=== PATIENT | female | born 1980 | race Caucasian/White ===

== ENCOUNTER 2019-08-19 14:16 | Outpatient (CLI) | payer OTHER, SELFPAY ==
--- NOTE | 2019-08-19 14:31 | MM_ITS ---
WS: [id number] BILATERAL DIGITAL SCREENING MAMMOGRAPHY WITH CAD CLINICAL INFORMATION: SCREEN HISTORY: Screening mammogram. No current complaints. COMPARISON: None. TECHNIQUE: Bilateral CC and MLO views. FINDINGS: Scattered fibroglandular densities bilaterally. No suspicious focal mass, asymmetry, calcifications, or architectural distortion. No evidence of malignancy. MM/[id number] IMPRESSION: BI-RADS: 2-Benign FOLLOW UP: 1 Year Follow-up Recommend return to annual screening mammography.
== END 2019-08-19 14:17 | disposition home or self-care (01) ==
PROVIDERS: PCP Family Medicine; Visit Provider Nurse Practitioner Family
DX: Z12.31 Encounter for screening mammogram for malignant neoplasm of breast (principal)
CPT/HCPCS: 77067

== ENCOUNTER 2021-02-06 10:50 | Outpatient (CLI) | payer OTHER, SELFPAY ==
--- NOTE | 2021-02-06 11:02 | MM_ITS ---
WS: [id number] BILATERAL SCREENING DIGITAL MAMMOGRAM WITH CAD HISTORY: SCREENING COMPARISON: 08/19/2019 Bilateral CC and MLO views submitted. Computer aided detection analyzed. Breast composition: The breasts are heterogeneously dense, which may obscure small masses. No suspici ous masses, microcalcifications or architectural distortion. Scattered asymmetries within each breast are stable. Benign calcifications in the LEFT breast. MM/[id number] IMPRESSION: BI-RADS: 2-Benign FOLLOW UP: 1 Year Follow-up
== END 2021-02-06 10:51 | disposition home or self-care (01) ==
LOC: RADSHAW 10:58
PROVIDERS: PCP Family Medicine; Visit Provider Nurse Practitioner Family
DX: Z12.31 Encounter for screening mammogram for malignant neoplasm of breast (principal)
CPT/HCPCS: 77067

== ENCOUNTER 2023-06-10 09:44 | Outpatient (CLI) | payer MEDICAID, SELFPAY ==
--- NOTE | 2023-06-10 09:48 | XRR_ITS ---
PROCEDURE INFORMATION: Exam: XR Urography With Contrast Exam date and time: 06/10/2023 9:30 AM Age: 42 years old Clinical indication: Symptoms: Megaloureter/dilation of R ureter; Prior surgery; Surgery date: 6+ months; Surgery type: TECHNIQUE: Imaging protocol: XR urography with intravenous contrast, with or without tomography. COMPARISON: No relevant prior studies available. FINDINGS: Kidneys and ureters: Kidneys are normal in size, shape, and position. Nephrograms are normal. There is no dilatation or filling defects of the renal calyces or renal pelvis. The ureters are normal in course and caliber, without any filling defects. Bladder: Normal. The bladder is normal in size, shape, and contour. No filling defects are evident. There is minimal post-void residual. XR/XR IVP w [id number] IMPRESSION: Unremarkable IV urogram.
== END 2023-06-10 09:45 | disposition home or self-care (01) ==
LOC: RAD 09:44
PROVIDERS: PCP Family Medicine; Visit Provider Obstetrics & Gynecology
DX: N28.82 Megaloureter (principal); Z98.891 History of uterine scar from previous surgery
CPT/HCPCS: 74400

== ENCOUNTER 2023-09-09 16:03 | Observation (INO) | payer MEDICAID, SELFPAY ==
--- NOTE | 2023-09-01 10:43 | ANES.PREANE2 ---
Pre-Anesthetic Assessment Height/Weight: Height 1.7 m Operation Date: 09/09/23 09:20 Proposed Procedures p Total Vaginal Hysterectomy 27491, 95837,79792, N81.2, N93.9, N81.10, N39.46(Not Applicable) - Aidan Jack MD s Anterior Repair Anterior Colporrhaphy(Not Applicable) - Aidan Jack MD s Sling(Not Applicable) - Aidan Jack MD Familial anesthetic complications: none Was Beta Jazz taken within 24 hours: N/A Was Clonidine taken within 24 hours: N/A Last intake: > 8 hrs Social No alcohol and No tobacco Exam alert, oriented x 3, clear to auscultation bilaterally and regular rate & rhythm Airway Mallampati: Class II Dentition: full Anesthetic Plan ASA status: 1 Anesthesia: General Risk of > 500 ml blood loss (7ml/kg in children): No Medications/Allergies Home Medications Medication Instructions Recorded Confirmed Last Taken Type escitalopram oxalate 10 mg tablet 10 mg PO DAILY 05/21/23 09/01/23 09/01/23 History (Lexapro) progesterone micronized 100 mg 100 mg PO .QPM 05/21/23 09/01/23 09/01/23 History capsule omega-3 fatty acids 300 mg capsule 1,500 mg PO DAILY 09/01/23 09/01/23 09/01/23 History Allergies Allergy/AdvReac Type Severity Reaction Status Date / Time No Known Allergies Allergy Verified 09/01/23 10:19 [facility] Anesthesia Family History Denies family history of Colon cancer Ovarian cancer Diabetes Heart disease Breast cancer Hypertension Uterine cancer Thyroid disease Stroke Data Anesthesia Cardiac Studies: No Data to Display
[2023-09-09] VITALS (23 sets, daily range): BP systolic 96–135; BP diastolic 57–82; PULSE 67–104; RESP 8–19; TEMP 36.3–36.7; O2SAT 97–100; BMI 26.6
[2023-09-09 11:43] LABS: OR HCG Qualitative Urine Negative (Negative)
--- NOTE | 2023-09-09 11:46 | P.ANESUD_ITS ---
Pre-Anesthetic Update Pre-Anesthetic Assessment: Date of Surgery/Procedure: 09/09/23 Preop Kassandra gnosis: Uterine prolapse, cystocele, mixed urinary incontinence Proposed Procedure: Operation Date: 09/09/23 12:30 Proposed Procedures p Total Vaginal Hysterectomy 32798, [id number],17495, N81.2, N93.9, N81.10, N39.46(Not Applicable) - Aidan Jack MD s Anterior Repair Anterior Colporrhaphy(Not Applicable) - Aidan Jack MD s Sling(Not Applicable) - Aidan Jack MD Any changes to Pre-Anesthetic Assessment?: No Exam: Pre-Anes Outpt Exam: alert, oriented x 3, clear to auscultation bilaterally and regular rate & rhythm Cardiac Studies: No Data to Display
[2023-09-09] MEDS: sodium chloride 0.9% 500 ML IV (12:28)
[2023-09-09] MEDS: scopolamine 1.5 Patch 1 PATCH TRANSDERMA (12:32)
[2023-09-09] MEDS: midazolam 1 mg/mL INJ 2 mL 2 MG IVP (12:35)
--- NOTE | 2023-09-09 12:42 | W.PM.OPSUD ---
Surgery/Procedure H&P Update DATE OF PROCEDURE: September 09, 2023 DATE H&P PERFORMED: 09/01/23 H&P UPDATE INFORMATION: I have reviewed H&P completed within last 30 days, I have examined patient prior to procedure and No changes to prior documentation PREOP DIAGNOSIS: Uterine prolapse, cystocele, mixed urinary incontinence PLANNED PROCEDURE: Operation Date: 09/09/23 12:30 Proposed Procedures p Total Vaginal Hysterectomy 45116, 30720,19552, N81.2, N93.9, N81.10, N39.46(Not Applicable) - Aidan Jack MD s Anterior Repair Anterior Colporrhaphy(Not Applicable) - Aidan Jack MD s Sling(Not Applicable) - Aidan Jack MD
[2023-09-09] MEDS: ondansetron 2 mg/ML SDV 2 mL 4 MG IVP (12:48)
[2023-09-09 12:56] LABS: Basophils % 0.4 %; Eosinophils # 0.1 10^3/uL (0.0-0.8); Eosinophils % 1.5 %; Hematocrit 41.7 % (36-47); Lymphocytes # 1.1 10^3/uL (0.8-4.8); Lymphocytes % 16.9 %; Mean Corpuscular HGB Conc 33.3 g/dL (30-55); Mean Corpuscular Hemoglobin 29.7 pg (27-33); Mean Corpuscular Volume 89.1 fl (85-98); Mean Platelet Volume 9.6 fL (7.4-10.4); Monocytes # 0.6 10^3/uL (0.2-0.9); Neutrophils # 4.79 10^3/uL (1.8-7.7); Neutrophils % 71.9 %; Nucleated Red Blood Cells % 0 %; Platelet Count 289 10^3/cmm (157-399); Red Blood Count 4.68 10^6/uL (3.85-5.65); White Blood Count 6.67 10^3/uL (3.29-11.43)
[2023-09-09] MEDS: sodium chloride 0.9% 1,000 ML 30 ML IV (12:57)
[2023-09-09] MEDS: diphenhydrAMINE 50 mg/mL SDV 1mL 12.5 MG IVP (12:58)
[2023-09-09 13:02] LABS: Blood Urine Neg (Negative); Glucose Urine UA Norm (Normal); Ketones Urine 1+ (Negative); Nitrate Urine Negative (Negative); Protein Urine Neg (Negative); Specific Gravity, Urine 1.015 (1.005-1.030); Urine Appearance Slightly Cloudy (CLEAR); Urine Color Yellow (Yellow); pH Urine 6.5 (5-7)
[2023-09-09 13:03] LABS: Add Urine Microscopic? YES; Bilirubin Urine Neg (Negative); Leukocyte Esterase Urine Negative (Negative); Urobilinogen Urine Neg (Negative)
[2023-09-09 13:04] LABS: RBC Urine 0-4 /hpf (0-2); WBC Urine 0-4 /hpf (0-5)
[2023-09-09 13:05] LABS: Add Urine Culture? No; Bacteria Urine 2+ /hpf; Mucus Urine 1+ /hpf
[2023-09-09 13:12] LABS: Alanine Aminotransferase 19 U/L (0-33); Albumin Level 4.5 g/dL (3.5-5.2); Alkaline Phosphatase 53 U/L (35-105); Anion Gap 15.6 (5-19); Aspartate Amino Transferase 16 U/L (0-32); Blood Urea Nitrogen 12 mg/dL (6-20); Calcium 9.1 mg/dL (8.5-10.5); Carbon Dioxide 24 mmol/L (22-29); Chloride 104 mmol/L (98-107); Creatinine Clr Calc Pharmacy 192.1125; Glomerular Filtration Rate 173.4 mL/min (90-130); Glucose 90 mg/dL (65-115); Osmolality Calculated 289 mOsm/kg (285-295); Potassium 3.6 mmol/L (3.5-5.1); Sodium 140 mmol/L (136-145); Total Bilirubin 0.4 mg/dL (0.15-1.2); Total Protein 7.5 g/dL (6.6-8.7)
[2023-09-09] MEDS: ceFAZolin 2,000 MG in sodium chloride 0.9% (plus) 50 ML 100 MG IV (13:30)
[2023-09-09] MEDS: lidocaine-epi 2% PF 1:200,000 20 mL SDV INJECTION (14:11)
--- NOTE | 2023-09-09 16:06 | W.PM.BPON ---
Date of Procedure: 09/09/23 Surgeon: Aidan Jack MD School Office Manager(s): Procedure(s) performed: Total vaginal hysterectomy with bilateral salpingectomy, anterior colporrhaphy augmented with allograft, mid urethral sling, incision and drainage of vaginal cyst. Findings of the procedure(s): Enlarged uterus, right side vaginal cyst Estimated blood loss: 550 mL Specimen(s) removed: Uterus, left and right fallopian tube Post-operative diagnosis: Enlarged uterus, uterine prolapse cystocele, mixed urinary incontinence, right-sided vaginal wall cyst.
--- NOTE | 2023-09-09 16:10 | P.OP_ITS ---
Operative Report Date of procedure: September 09, 2023 Pre-op diagnosis: Uterine prolapse Cystocele Mixed urinary incontinence Post-op diagnosis: same Post-op diagnosis: Right side vaginal wall cyst Post-op findings: Enlarged uterus Vaginal right wall cyst Procedure done: Total vaginal hysterectomy with bilateral salpingectomy Anterior colporrhaphy augmented with allograft Mid urethral sling Vaginal wall cyst incision and drainage Cystoscopy Implants: Coloplast Altis sling Coloplast dermis allograft Specimens removed/disposition: Uterus Left the right fallopian tube Pathology: Enlarged uterus Surgeon: Aidan Jack MD Estimated blood loss (mL): 550 IV fluids (mL): 1,000 Urine output (mL): 150 Complications: Bleeding Findings: Enlarged uterus Right side vaginal wall mucinous cyst. Procedure: After informed consent and risks, benefits, indications and alternatives reviewed with the patient was taken to the operating room. The patient was placed in dorsal lithotomy position prepped, and draped in the usual sterile fashion. The pre-procedure timeout verifying the correct patient, procedure, site and side, could not requirements was performed and acknowledge by the OR team. A Logan catheter was placed. A Bookwalter vaginal retractor was placed into the vagina in usual manner visualize the cervix. Cervix was grasped with a single tooth tenaculum and circumferentially infiltrated with 2% lidocaine with epinephrine. Then cervix was circumferentially incised with bovie and the b ladder was dissected off the pubovesical cervical fascia anteriorly with a sponge stick and Metzenbaum scissors. The anterior peritoneal reflection was identified and the anterior cul-de-sac was entered sharply with Metzenbaum scissors. The same procedure was performed posteriorly and a posterior colpotomy was made through the posterior cul-de-sac space without difficulty and the posterior blade of the Bookwalter vaginal retractor was advanced posteriorly into the cul-de-sac. At this time, the left and right uterosacral ligaments were isolated and ligated with 0 Vicryl. The LigaSure device was placed over the uterosacral ligaments on either side and was then used in a serial fashion up through the cardinal ligaments bilaterally cross-clamped, cut, and sealed with the LigaSure device. Finally, the uterine arteries were cross-clamped, cut, sealed and ligated with the LigaSure device. Hemostasis was assured. The broad ligaments were then serially clamped, sealed and cut with the LigaSure device on both sides. Excellent hemostasis was visualized. Both cornua were clamped, sealed and cut with the LigaSure device. Then the pedicles were then suture ligated with excellent hemostasis. The uterus was excised and submitted for pathologic evaluation. No other abnormalities were noted in the pelvic cavity. Then the right fallopian tube was identified. The ureter was confirmed along the pelvic side wall and peristalsis was noted. The LigaSure device was then used to clamp, sealed and transcepted the fallopian tube again being sure to be clear of the ureter and the fallopian tube was removed. The same process was then repeated on the left side. Good hemostasis was assure on both sides. The peritoneum was then closed in a pursestring fashion with 0 Vicryl suture. The vaginal cuff angles were closed with [id number] #0 Vicryl suture on both sides and transfixed with the ipsilateral cardinal and uterosacral ligaments. The remainder of the vaginal cuff was closed with #0 Vicryl in a running locked fashion. Then the anterior vaginal mucosa beneath the midurethra was infiltrated with 2% lidocaine with epinephrine. A vertical midline incision was made beneath the m idurethra, nearly 1.5 cm length. Careful submucosal dissection was performed bilaterally up to the interior portion of the inferior pubic ramus. The insertion of adductor longus tendon on the patient?s pubic ramus was identified as reference land ace. Palpated the notch along the internal edge of ischiopubic ramus where the adductor longus tendon and the inferior pubic ramus meet. The Altis single incision sling (SIS) was selected. Then the needle of the SIS inserted aiming at the location of this notch. One of the integrated self- fixating tips place onto the needle by sliding it over the end of the needle. The needle/sling assembly was inserted toward the location of identified reference notch making sure that the flat of the handle is perpendicular to the desired path. The needle was tracked along the posterior surface of the ischiopubic ramus until the midline ace on the mesh is approximately at the midline position under the urethra. The needle was removed and the same was repeated on the contralateral side until the appropriate sling tension under the urethra was achieved ensuring that the mesh lays flat. The needle was removed and vaginal incision was closed in a running interlocking fashion with 2-0 Vicryl. After obtaining informed consent, the patient was taken to the operating room and placed in the supine position, given general anesthesia, and prepped and draped in sterile fashion. The abdomen, vulva and vagina were prepped and draped in a sterile manner. A time out procedure was performed. The vaginal mucosa was then injected in the midline with normal saline. The vaginal mucosa was scored in the midline with the Bovie approximately 1 cm medial to the urethral meatus to 1 cm distal to the vaginal cuff. This vaginal mucosa was then undermined and then incised in the midline with the Metzenbaum scissors. The lateral aspects of the vaginal mucosa were then grasped with the Allis clamps and the vaginal mucosa was then dissected off the underlying fascia with the Metzenbaum scissors. Again, there was noted to be quite a bit of oozing at the incision, which was controlled with cautery. After adequate dissection was performed, bilaterally. The Coloplast dermis allograft modified at time of application to fit spacea, 3 x 3 cm piece . The Coloplast allograft placed in front of cystocele ready to be implanted facing the vagina mucosa. Suture is placed at distal end of graft and placed towards vaginal cuff. Final suture is placed on proximal portion of the graft to complete the placement overlying the bladder. Then Interrupted vertical mattress sutures of 0 Vicryl were used to elevate the cystocele superiorly. The right side vaginal wall cyst was incised and mucous mucinous material was evacuated and cyst oliveros was removed. Then the excessive vaginal mucosa was then trimmed with the Metzenbaum scissors and the vaginal mucosa was then reapproximated in the running interlocking fashion with 2-0 Vicryl. Bludigo was given IV At this time, instruments were removed from the vagina at hemostasis assured. Then the Logan catheter was removed and cystoscope was inserted. The bladder was filled with sterile water. Complete evaluation of the bladder mucosa was performed noting no lacerations, dimpling, tears, bleeding of the mucosa or muscular layers. Both ureteral orifices were identified. Prompt excretion of urine from both ureteral orifices was noted. Bludigo was noted coming from both ureters. The cystoscope was withdrawn. Logan catheter was then placed yielding clear gildardo/blue urine. A vaginal packing was placed and the patient was taken out of dorsal lithotomy position and awakened from the general anesthesia. The patient tolerated the procedure well and was taken to the PACU recovery room in a stable condition. Sponge, lap, needle and instruments counts were correct x3.
--- NOTE | 2023-09-09 16:39 | PC.NURSE ---
1640 - pt arrived to pacu at 1615 with small amount of bright red bleeding on pad - pt states she can feel herself bleeding - ob pad changed X2 - pt appears to be actively bleeding - OR nurse ABDOUL White at [facility] - Dr Jack notified and will return to pacu - vss at present time
--- NOTE | 2023-09-09 16:39 | ANE.PACU2 ---
Inpatient post-anesthesia follow up: Airway intact: Yes Vital signs: Temperature 97.5 F Pulse Rate 81 Respiratory Rate 10 Blood Pressure 105/69 Pulse Oximetry 100 Oxygen Delivery Me thod Room Air Oxygen Flow Rate Fraction of Inspir ed Oxygen Hydration adequate: Yes Nausea and vomiting: No Pain level: 3 Mental status: Baseline
--- NOTE | 2023-09-09 16:53 | PC.NURSE ---
1650 - Dr Jack at side as well as this nurse and ABDOUL White - per pt will be returning to OR - pt aware
--- NOTE | 2023-09-09 17:06 | PC.NURSE ---
1700 - OR crew to bedside - taken pt via gurney to OR -
[2023-09-09 17:37] LABS: Hematocrit 32.2 % (36-47)
--- NOTE | 2023-09-09 17:41 | P.ANESUD_ITS ---
Pre-Anesthetic Update Pre-Anesthetic Assessment: Date of Surgery/Procedure: 09/09/23 Preop Kassandra gnosis: Uterine prolapse, cystocele, mixed urinary incontinence Proposed Procedure: Operation Date: 09/09/23 12:30 Proposed Procedures p Total Vaginal Hysterectomy 17226, 56087,60943, N81.2, N93.9, N81.10, N39.46(Not Applicable) - Aidan Jack MD s Anterior Repair Anterior Colporrhaphy(Not Applicable) - Aidan Jack MD s Sling(Not Applicable) - Aidan Jack MD Operation Date: 09/09/23 16:55 Proposed Procedures p Total Vaginal Hysterectomy(Not Applicable) - Aidan Jack MD Any changes to Pre-Anesthetic Assessment?: Yes Changes from Pre- Anesthetic Assessment: Bleeding in PACU, back to OR for evaluation. Last Intake: Intake Last Liquid Date 09/08/23 Last Liquid Time 19:30 Last Solid Date 09/08/23 Last Solid Time 21:30 Labs Last 48hrs: Short CBC 09/09/23 09/09/23 Range/Units 12:15 17:25 WBC 6.67 (3.29-11.43) 10^ 3/uL Hgb 13.90 10.50 L (11.27-16.99) g/ dL Hct 41.7 32.2 L (36-47) % MCV 89.1 (85-98) fl Plt Count 289 (157-399) 10^3/c mm Neut % (Auto) 71.9 % Neut # (Auto) 4.79 (1.8-7.7) 10^3/u L BMP 09/09/23 12:15 Sodium 140 Potassium 3.6 Chloride 104 Carbon Dioxide 24 BUN 12 Creatinine 0.4 L Glucose 90 Calcium 9.1 Liver Function 09/09/23 Range/Units 12:15 Total Bilirubin 0.4 (0.15-1.2) mg/dL AST 16 (0-32) U/L ALT 19 (0-33) U/L Alkaline Phosphata se 53 (35-105) U/L Albumin 4.5 (3.5-5.2) g/dL Urine 09/09/23 Range/Units 11:40 Urine Color Yellow (Yellow) Urine Appearance Slightly cloudy (CLEAR) Urine pH 6.5 (5-7) Ur Specific Gravit y 1.015 (1.005-1.030) Urine Protein Neg (Negative) Urine Glucose (UA) Norm (Normal) Urine Ketones 1+ H (Negative) Urine Nitrate Negative (Negative) Urine Bilirubin Neg (Negative) Ur Leukocyte Niru ase Negative (Negative) Urine RBC 0-4 H (0-2) /hpf Urine WBC 0-4 H (0-5) /hpf Blood Bank 09/09/23 12:15 Blood Type O Positive Rho(D) Type Rh positive Antibody Screen Negative Vitals: Temperature 97.8 F 09/09/23 16:45 Temperature Source Temporal Artery S can 09/09/23 16:45 Pulse Rate 67 09/09/23 17:00 Pulse Rhythm Regular 09/09/23 11:57 Pulse Strength 3+ Normal 09/09/23 11:57 Respiratory Rate 8 L 09/09/23 17:00 Blood Pressure 113/68 09/09/23 17:00 Blood Pressure Zhane n 83 09/09/23 17:00 Pulse Oximetry 100 09/09/23 17:00 Oxygen Delivery Me thod Room Air 09/09/23 17:00 Exam: Pre-Anes Outpt Exam: alert, oriented x 3, clear to auscultation bilaterally and regular rate & rhythm Cardiac Studies: No Data to Display
--- NOTE | 2023-09-09 17:51 | ANE.PACU2 ---
Inpatient post-anesthesia follow up: Airway intact: Yes Vital signs: Temperature 97.8 F Pulse Rate 67 Respiratory Rate 8 Blood Pressure 113/68 Pulse Oximetry 100 Oxygen Delivery Me thod Room Air Oxygen Flow Rate Fraction of Inspir ed Oxygen Hydration adequate: Yes Nausea and vomiting: No Pain level: 2 Mental status: Baseline
--- NOTE | 2023-09-09 18:33 | PC.NURSE ---
1800 - report called to ABDOUL Tate - notified nurse of vaginal packing
--- NOTE | 2023-09-09 18:50 | PC.NURSE ---
Director Of Institutional Research in room to begin IV fluids. Patient states she feels like she is bleeding a lot. Patient noted to have saturated rome pad, pad removed. Amanda, RN notified of increase in bleeding. Discussed with patient we would call Dr. Jack. See physician notification.
[2023-09-09] MEDS: dextrose 5%-lactated ringers 1,000 ML 125 ML IV (18:58)
[2023-09-09] MEDS: docusate sodium 100 mg Capsule PO (18:58)
[2023-09-09] MEDS: ketorolac 30 mg/mL INJ IVP (18:58)
[2023-09-09] MEDS: tranexamic acid 1,000 MG/100 ML PREMIX 600 MG IV (20:36)
[2023-09-09] MEDS: HYDROcodone-acetaminophen 5-325 mg Tablet PO (22:06)
[2023-09-10] VITALS: BP 98/59; PULSE 91; RESP 18; TEMP 36.6
[2023-09-10] MEDS: ketorolac 30 mg/mL INJ IVP (00:45)
[2023-09-10 02:00] VITALS: BP 97/56; PULSE 80; RESP 18
[2023-09-10] MEDS: HYDROcodone-acetaminophen 5-325 mg Tablet PO (04:04)
[2023-09-10 06:00] VITALS: BP 99/63; PULSE 104; RESP 18; TEMP 36.6
--- NOTE | 2023-09-10 06:59 | PC.NURSE ---
patient up to bathroom and had an output of 250 and a residual volume of 244 via bladder scan.
[2023-09-10 08:30] VITALS: BP 92/51; PULSE 77; RESP 18; TEMP 36.6
[2023-09-10] MEDS: docusate sodium 100 mg Capsule PO (08:31)
[2023-09-10] MEDS: escitalopram 10 mg Tablet PO (08:31)
[2023-09-10 10:33] LABS: Hematocrit 24.3 % (36-47); Mean Corpuscular HGB Conc 32.1 g/dL (30-55); Mean Corpuscular Hemoglobin 30.4 pg (27-33); Mean Corpuscular Volume 94.6 fl (85-98); Mean Platelet Volume 10.9 fL (7.4-10.4); Platelet Count 203 10^3/cmm (157-399); Red Blood Count 2.57 10^6/uL (3.85-5.65); Red Cell Distribution Width 13.3 % (12.1-15.1); White Blood Count 8.38 10^3/uL (3.29-11.43)
--- NOTE | 2023-09-10 11:23 | P.DS_ITS ---
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 Hawthorne 42-year-old female with a history of uterine prolapse, cystocele, and urinary incontinence. She was admitted for planned total vaginal hysterectomy, anterior colporrhaphy and mid urethral sling. A total vaginal h ysterectomy with bilateral salpingectomy, anterior colporrhaphy augmented with allograft, mid urethral sling and right side vaginal wall cyst I&D were performed. Procedures were complicated by significant bleeding during the procedure. Immediately postsurgery during PACU observation patient was noted to have significant vaginal bleeding. She was taken back to the OR to assess the bleeding. Incisional edge bleeding was noted additional sutures placed at the incision controlled the bleeding. Overnight observation was uneventful. Tolerating diet well. She is afebrile hemodynamically stable postoperative day 1. PVR within normal limits. She was counseled regarding pelvic rest for 6 weeks (no sex, no tampons, no vaginal douches). Return to the emergency room if any fever, increased bleeding or pain. Physical Exam Narrative: GA: Alert and oriented ?3. HEENT: WNL. Heart: Regular rate and rhythm. Lungs: Clear to auscultation bilaterally. Abdomen: Bowel sounds present, nontender, minimal tenderness, incision clean and dry, no redness, pain or edema. HEADWAITRESS: Spotting bleeding. Extremities: No edema, no cyanosis, no calves pain. Urinary Catheter Management: Logan: Cath Placed During This Visit: yes, but has since been removed by the nurse Reason for Continuing Indwelling Catheter: Decision to DC Catheter Urinary Catheter Date of Insertion: 09/09/23 Urinary Catheter Time of Insertion: 13:55 Date Urinary Catheter Removed: 09/10/23 Time Urinary Catheter Discontinued: 06:00 History History History 5 Term 4 0 Miscarriages/Ectopic 1 Living Children 4 Discharge Data Studies Completed and Pending Pending at discharge Category Date Time Status Pathology: Surgical [PTH] Routine Pth 09/09/23 14:41 Received Laboratory Results WBC 8.38 10^3/uL (3.29-11.43) 09/10/23 05:57 RBC 2.57 10^6/uL (3.85-5.65) L 09/10/23 05:57 Hgb 7.80 g/dL (11.27-16.99) L 09/10/23 05:57 Hct 24.3 % (36-47) L 09/10/23 05:57 MCV 94.6 fl (85-98) D 09/10/23 05:57 MCH 30.4 pg (27-33) 09/10/23 05:57 MCHC 32.1 g/dL (30-55) 09/10/23 05:57 RDW 13.3 % (12.1-15.1) 09/10/23 05:57 Plt Count 203 10^3/cmm (157-399) 09/10/23 05:57 MPV 10.9 fL (7.4-10.4) H 09/10/23 05:57 Neut % (Auto) 71.9 % 09/09/23 12:15 Lymph % (Auto) 16.9 % 09/09/23 12:15 [place] % (Auto) 9.0 % 09/09/23 12:15 Eos % (Auto) 1.5 % 09/09/23 12:15 Baso % (Auto) 0.4 % 09/09/23 12:15 Neut # (Auto) 4.79 10^3/uL (1.8-7.7) 09/09/23 12:15 Lymph # (Auto) 1.1 10^3/uL (0.8-4.8) 09/09/23 12:15 [place] # (Auto) 0.6 10^3/uL (0.2-0.9) 09/09/23 12:15 Eos # (Auto) 0.1 10^3/uL (0.0-0.8) 09/09/23 12:15 Baso # (Auto) 0.0 10^3/uL (0.0-0.1) 09/09/23 12:15 Nucleated RBC % (auto) 0 % 09/09/23 12:15 Nucleated RBCs # 0.0 /100WBC 09/09/23 12:15 Sodium 140 mmol/L (136-145) 09/09/23 12:15 Potassium 3.6 mmol/L (3.5-5.1) 09/09/23 12:15 Chloride 104 mmol/L (98-107) 09/09/23 12:15 Carbon Dioxide 24 mmol/L (22-29) 09/09/23 12:15 Anion Gap 15.6 (5-19) 09/09/23 12:15 BUN 12 mg/dL (6-20) 09/09/23 12:15 Creatinine 0.4 mg/dL (0.5-0.9) L 09/09/23 12:15 GFR Calculation 173.4 mL/min (90-130) H 09/09/23 12:15 Glucose 90 mg/dL (65-115) 09/09/23 12:15 Calculated Osmolality 289 mOsm/kg (285-295) 09/09/23 12:15 Calcium 9.1 mg/dL (8.5-10.5) 09/09/23 12:15 Total Bilirubin 0.4 mg/dL (0.15-1.2) 09/09/23 12:15 AST 16 U/L (0-32) 09/09/23 12:15 ALT 19 U/L (0-33) 09/09/23 12:15 Alkaline Phosphatase 53 U/L (35-105) 09/09/23 12:15 Total Protein 7.5 g/dL (6.6-8.7) 09/09/23 12:15 Albumin 4.5 g/dL (3.5-5.2) 09/09/23 12:15 Globulin 3.0 g/dL (1.3-4.6) 09/09/23 12:15 Urine Color Yellow (Yellow) 09/09/23 11:40 Urine Appearance Slightly cloudy (CLEAR) 09/09/23 11:40 Urine pH 6.5 (5-7) 09/09/23 11:40 Ur Specific [place] 1.015 (1.005-1.030) 09/09/23 11:40 Urine Protein Neg (Negative) 09/09/23 11:40 Urine Glucose (UA) Norm (Normal) 09/09/23 11:40 Urine Ketones 1+ (Negative) H 09/09/23 11:40 Urine Blood Neg (Negative) 09/09/23 11:40 Urine Nitrate Negative (Negative) 09/09/23 11:40 Urine Bilirubin Neg (Negative) 09/09/23 11:40 Urine Urobilinogen Neg mg/dL (Negative) 09/09/23 11:40 Ur Leukocyte Esterase Negative (Negative) 09/09/23 11:40 Urine RBC 0-4 /hpf (0-2) H 09/09/23 11:40 Urine WBC 0-4 /hpf (0-5) H 09/09/23 11:40 Ur Squamous Epith Cells 10-15 /hpf (0-5) H 09/09/23 11:40 Amorphous Sediment Not Reportable 09/09/23 11:40 Urine Bacteria 2+ /hpf (NONE) H 09/09/23 11:40 Urine Mucus 1+ /hpf 09/09/23 11:40 Urine HCG, Qual Negative (Negative) 09/09/23 11:11 Blood Type O Positive 09/09/23 12:15 Rho(D) Type Rh positive 09/09/23 12:15 Antibody Screen Negative 09/09/23 12:15 Vitals Last Vital Signs Temp 97.8 F 09/10/23 08:30 Pulse 77 09/10/23 08:30 Resp 18 09/10/23 08:30 BP 92/51 09/10/23 08:30 Pulse Ox 100 09/09/23 21:28 O2 Del Method Room Air 09/09/23 21:28 Results Labs OB ([facility]): Blood Type O Positive 09/09/23 Antibody Screen Negative 09/09/23 Hct 24.3 % (36-47) L 09/10/23 Hgb 7.80 g/dL (11.27-16.99) L 09/10/23 Rho(D) Type Rh positive 09/09/23 Plt Count 203 10^3/cmm (157-399) 09/10/23 Discharge Plan Discharge Patient Disposition: Home Condition: Stable Prescriptions: New hydrocodone-acetaminophen 5-325 mg tablet 1 tab PO Q4H PRN (Reason: pain) Qty: 30 0RF acetaminophen 325 mg capsule 325 mg PO Q4H PRN (Reason: fever or pain) Qty: 60 0RF ferrous sulfate [Iron (ferrous sulfate)] 325 mg (65 mg iron) tablet 325 mg PO BID Qty: 60 0RF docusate sodium [Colace] 100 mg capsule 100 mg PO BID Qty: 60 0RF ibuprofen 800 mg tablet 800 mg PO TID PRN (Reason: pain) Qty: 60 0RF Continued escitalopram oxalate [Lexapro] 10 mg tablet 10 mg PO DAILY Fish Oil 300 mg Capsule 1,500 mg PO DAILY Discontinued progesterone micronized 100 mg capsule 100 mg PO .QPM Rx Instructions: every other night Discharge Orders: Discharge Order (Routine); Ordered 09/10/23 Ordered By: Aidan Jack Referrals: Aidan Jack MD [Primary Care Provider] - 09/26/23 8:15 am (6 WEEK POSTOP: 10/22 @ 09:15) Discharge Diet: Usual diet Discharge Activity: Limit activity as instructed Patient Instructions: Vaginal Hysterectomy (DC), Anterior Vaginal Repair (DC), Posterior Vaginal Repair (DC), OB Discharge Report, OB Food/Drug Interaction Guide, Opioid Safety Activity Restrictions/Additional Instructions: 1. Please call [facility] on next working day to make your post-operative appointment in 2 weeks. 2. Please stay home until you come back to the clinic on first post- hospatilization check up. 3. Please follow instructions on your medications CAREFULLY. 4. If you have abdominal incision, do not cover it unless dressing is necessary because of drainage. OK to shower, but avoid bath. Leave steri-strips until they fall off. If they are still on one week after surgery, you may remove them. 5. If you had vaginal surgery or vaginal repair, Dr. Jack may instruct you to take SITZ bath. 6. Yellow, blood tinged odorous vaginal discharge is usually normal after hysterectomy or vaginal surgeries. 7. No SEXUAL INTERCOURSE, tampons, or douches until you are completely released from the post-operative care. 8. Avoid constipation by eating right and maybe using some Metamucil or Milk of Magnesia. 9. All prescription refills are given during the working hours. Please do no wait till it runs out. Call the clinic at [phone] before your medication runs out. The clinic will get in touch with your doctor to prescribe medications if necessary. 10. Please remain within 40 mile radius from our hospital because emergencies do happen now and then during the post-operative period. 11. If you have stairs at home, take one step at a time slowly and minimize the number of trips. It helps to stay in one floor for the next few days. No lifti ng except what you can lift by one hand until you are released from the post- operative care. 12. Driving is discouraged until you are well healed. It may be 3-4 weeks before you feel strong enough to drive. You should be able to turn and look through the rear window without pain and you should be able to push the brake pedal very hard without pain before you drive. No fast rules, but SAFETY should be your primary concern. DO NOT drive if you are on sedating medications such as narcotics. 13. Call the clinic (during working hours) to make urgent appointment or go to the Emergency room, if any of the following occurs: i. Vaginal bleeding becomes heavy, more than a period. ii. Incision becomes red and sore, or drains pus. iii. Your TEMPERATURE is over 100.4F or you have chill. iv. IV site becomes red and swollen (a little ``knot?? is usually OK) v. Persistent nausea and vomiting vi. Persistent constipation or diarrhea vii. Rash or allergic reaction to medications. 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
[2023-09-10 11:51] VITALS: BP 94/59; PULSE 80; RESP 16; TEMP 36.7; O2SAT 100
[2023-09-10 12:00] VITALS: BP 94/59; PULSE 80; RESP 16; TEMP 36.7; O2SAT 100
--- NOTE | 2023-09-11 08:14 | PC.NURSE ---
PATIENT CARE WAS TURNED OVER TO VIVIANA PEREZ RN YESTERDAY AROUND 1130, SHE WAS JUST WAITING FOR PHARMACY TO BRING HER MEDS TO HER. THEN SHE WAS DISCHARGED AROUND 1145 I BELIEVE.
== END 2023-09-10 11:45 | disposition home or self-care (01) ==
LOC: OBGYN 16:03
PROVIDERS: Admitting Provider Obstetrics & Gynecology; PCP Obstetrics & Gynecology; Visit Provider Obstetrics & Gynecology
PROC: (CPT 57135; principal; 2023-09-09 12:20)
PROC: 0JQC0ZZ Repair Pelvic Region Subcutaneous Tissue and Fascia, Open Approach (ICD-10-PCS; CPT 57240; 2023-09-09 12:20)
PROC: (CPT 57288; 2023-09-09 12:20)
PROC: (CPT 58700; 2023-09-09 12:20)
DX: N81.4 Uterovaginal prolapse, unspecified (principal); N39.46 Mixed incontinence; N99.820 Postprocedural hemorrhage of a genitourinary system organ or structure following a genitourinary system procedure
CPT/HCPCS: 57135; 57240; 57288; 58262; 36415; 51798; 80053; 81001; 81025; 85014; 85018; 85025; 85027; 86850; 86900; 88307; C1713; C1762; G0378; J0690; J1100; J1170; J1200; J1885; J2250; J2405; J2704; J2710; J3010; J3490; J7030; J7040; J7121; J7613

== ENCOUNTER 2023-09-19 13:05 | Emergency (ER) | payer MEDICAID, SELFPAY ==
[2023-09-19 13:50] VITALS: BP 124/81; PULSE 101; RESP 20; TEMP 37.7; O2SAT 100
[2023-09-19 15:00] VITALS: BP 132/86; PULSE 97; O2SAT 100
--- NOTE | 2023-09-19 15:30 | CTR_ITS ---
PROCEDURE INFORMATION: Exam: CT Abdomen And Pelvis With Contrast Exam date and time: 09/19/2023 4:19 PM Age: 42 years old Clinical indication: Abdominal pain; Localized; Lower; Prior surgery; Surgery date: <1 month; Surgery type: Partial hysterectomy and cyst removal S/P 10 days; Additional info: Abd pain TECHNIQUE: Imaging protocol: Computed tomography of the abdomen and pelvis with contrast. Radiation optimization: All CT scans at this facility use at least one of these dose optimization techniques: automated exposure control; mA and/or kV adjustment per patient size (includes targeted exams where dose is matched to clinical indication); or iterative reconstruction. Contrast material: OMNI 350; Contrast volume: 100 ml; Contrast route: INTRAVENOUS (IV); COMPARISON: CR XR IVP w KUB [id number] 06/10/2023 9:30 AM RADIATION DOSE METRICS: Total DLP (mGy-cm): 619.3 FINDINGS: Lungs: Subsegmental bibasilar atelectasis. The visualized lung bases are otherwise grossly clear. Diaphragm: No evidence of diaphragmatic defect. Liver: No focal hepatic lesion. Gallbladder and biliary ducts: Unremarkable. No intra-hepatic or extra-hepatic biliary dilatation. Pancreas: Unremarkable. Spleen: Unremarkable. Adrenal glands: Unremarkable. Kidneys and ureters: No renal parenchymal abnormality. Developmental malrotation of the right kidney. Question duplication of the right renal collecting system. No hydronephrosis or ureteral stone. Stomach and bowel: No evidence of bowel obstruction or perienteric inflammatory changes. Appendix: The appendix is not visualized, however there are no findings to suggest appendicitis. Intraperitoneal space: No evidence of free air or fluid collection. Vasculature: No aneurysmal dilatation or dissection of the abdominal aorta. The celiac trunk, SMA and AJCKIE are grossly patent. No evidence of IVC thrombus. The portal vein, SMV and splenic veins are grossly patent. Lymph nodes: No adenopathy. Urinary bladder: Grossly unremarkable. Reproductive: Postsurgical changes compatible with recent hysterectomy. There is a 2 cm focus of fluid and air along the right superolateral aspect of the surgical bed, nonspecific though raising the question of developing infection or dehiscence of the surgical line in the proper clinical setting (image 71 of series 3). No significant free fluid or intraperitoneal fluid collection. Bones/joints: No evidence of acute fracture or aggressive osseous lesion. Soft tissues: No evidence of fluid collection or hematoma in the superficial soft tissues. CT/CT abdomen pelvis w con* [id number] IMPRESSION: 1. Postsurgical changes compatible with recent hysterectomy. There is a small focus of fluid and air along the right superolateral aspect of the resection site, nonspecific though raising the question of developing infection or dehiscence of the surgical line in the proper clinical setting. No intraperitoneal free fluid or fluid collection. Correlation with laboratory findings and surgical evaluation is recommended.
[2023-09-19 15:34] LABS: Basophils % 0.2 %; Eosinophils # 0.1 10^3/uL (0.0-0.8); Eosinophils % 0.7 %; Hematocrit 30.2 % (36-47); Lymphocytes # 0.6 10^3/uL (0.8-4.8); Lymphocytes % 4.6 %; Mean Corpuscular HGB Conc 32.1 g/dL (30-55); Mean Corpuscular Hemoglobin 30.3 pg (27-33); Mean Corpuscular Volume 94.4 fl (85-98); Mean Platelet Volume 9.2 fL (7.4-10.4); Monocytes # 0.8 10^3/uL (0.2-0.9); Monocytes % 6.1 %; Neutrophils # 11.99 10^3/uL (1.8-7.7); Neutrophils % 87.9 %; Nucleated Red Blood Cells % 0 %; Platelet Count 305 10^3/cmm (157-399); Red Cell Distribution Width 14.5 % (12.1-15.1); White Blood Count 13.64 10^3/uL (3.29-11.43)
--- NOTE | 2023-09-19 15:37 | ED_ITS ---
HPI - Abdominal Pain 2 General: Chief Complaint: Abdominal Pain Stated Complaint: surgery 09/08, abd pain, fever Time Seen by Provider: 09/19/23 15:12 Source: patient Mode of arrival: ambulatory History of Present Illness: 43-year-old female presents emergency ro om 10 days postop from vaginal hysterectomy with a bladder sling. She has had a little bit of bleeding vaginally. She presents emergency room with complaints of pain is also difficulty with emptying her bladder. She has some lower abdominal discomfort radiating to the groin. She states she feels like she has razors in her pelvis when she tries to have a bowel movement. She been very nauseated but no vomiting low-grade fever at this time. MD elicited complaint: abdominal pain Onset (ago): day(s) Quality: cramping Exacerbating factors: bowel movement Relieving factors: nothing Associated Symptoms: Reports dysuria; Denies anorexia, belching, bloating, change in bowel habits, change in stool character, chills, coffee ground emesis, constipation, GI cramping, diarrhea, dyspepsia, excessive flatus, fever(s), heartburn, hematochezia, hematuria, hematemesis, fecal incontinence, loose stools, melena, nausea, poor appetite, syncope and vomiting Review of Systems 2 Const: Denies: fever(s) or chills Card: Denies: syncope Resp: Denies: dyspnea GI: Reports: abdominal pain; Denies: nausea, vomiting, hematemesis, coffee ground emesis, heartburn, diarrhea, constipation, bloating, GI cramping, belching, excessive flatus, fecal incontinence, change in bowel habits, change in stool character, hematochezia or melena : Reports: difficulty voiding and dysuria; Denies: hematuria Skin/Breast: Denies: rash PFSH ED 2 PFSH: Family History Denies family history of Colon cancer Ovarian cancer Diabetes Heart disease Breast cancer Hypertension Uterine cancer Thyroid disease Stroke Social History Smoking and tobacco/nicotine status: never used tobacco/nicotine Physical Exam 2 Const: GENERAL APPEARANCE: cooperative and comfortable O RIENTATION/CONSCIOUSNESS: Yes awake, Yes oriented to person, Yes oriented to place and Yes oriented to time HENMT: COMMON NORMALS: normocephalic, atraumatic and hearing grossly normal bilaterally HEAD & SCALP: normocephalic and atraumatic Resp: COMMON NORMALS: normal respiratory effort, No retractions, No use of accessory muscles and clear to auscultation bilaterally AUSCULTATION: clear to auscultation bilaterally Cardio: COMMON NORMALS: regular rate, regular rhythm and No murmurs present (Cardio) RATE: regular rate RHYTHM: regular rhythm GI: COMMON NORMALS: Soft to palpation and No hepatosplenomegaly present A USCULTATION: Yes normoactive bowel sounds PALPATION: Yes Soft to palpation, No Tenderness to palpation present (GI), No Guarding due to palpation present (GI) and Yes No hepatosplenomegaly present Extremity: COMMON NORMALS: normal to inspection, capillary refill normal, no clubbing, cyanosis or edema, no calf tenderness and no pedal edema Neuro: SENSORIUM/ORIENTATION: Yes oriented to person, Yes oriented to place and Yes oriented to time Skin: COMMON NORMALS: no rashes or lesions noted GENERAL SKIN EXAM: no rashes or lesions noted Course 2 Vital Signs: Vital signs: Vital Signs Temperature 99.8 F H 09/19/23 13:50 Pulse Rate 99 09/19/23 19:29 Respiratory Rate 20 H 09/19/23 13:50 Blood Pressure 122/69 09/19/23 19:29 Pulse Oximetry 98 09/19/23 19:29 Oxygen Delivery Me thod Room Air 09/19/23 18:52 MDM - Abdominal Pain Medical Decision Making CT shows fluid-filled collection of the cuff vagina. I discussed with Dr. Jack. I suspect patient also does not have incomplete bladder emptying and she did have some residual. Will start her on oral antibiotics place a Logan culture urine. She did have 50-80 white blood cells per high-power field. Reviewed findings with patient and her . Dr. Jack will see the patient early next week he did not feel the patient needed hospitalization at this point. Medical Records I reviewed the patient's medical records. Lab Data I reviewed the patient's lab results. 09/19/23 15:16 09/19/23 15:16 Labs/Radiology: Radiology Impressions Abdomen/Pelvis CT 09/19/23 15:30 IMPRESSION: 1. Postsurgical changes compatible with recent hysterectomy. There is a small focus of fluid and air along the right superolateral aspect of the resection site, nonspecific though raising the question of developing infection or dehiscence of the surgical line in the proper clinical setting. No intraperitoneal free fluid or fluid collection. Correlation with laboratory findings and surgical evaluation is recommended. Laboratory Results WBC 13.64 10^3/uL (3.29-11.43) H 09/19/23 15:16 RBC 3.20 10^6/uL (3.85-5.65) L 09/19/23 15:16 Hgb 9.70 g/dL (11.27-16.99) L 09/19/23 15:16 Hct 30.2 % (36-47) L 09/19/23 15:16 MCV 94.4 fl (85-98) 09/19/23 15:16 MCH 30.3 pg (27-33) 09/19/23 15:16 MCHC 32.1 g/dL (30-55) 09/19/23 15:16 RDW 14.5 % (12.1-15.1) 09/19/23 15:16 Plt Count 305 10^3/cmm (157-399) 09/19/23 15:16 MPV 9.2 fL (7.4-10.4) 09/19/23 15:16 Neut % (Auto) 87.9 % 09/19/23 15:16 Lymph % (Auto) 4.6 % 09/19/23 15:16 [place] % (Auto) 6.1 % 09/19/23 15:16 Eos % (Auto) 0.7 % 09/19/23 15:16 Baso % (Auto) 0.2 % 09/19/23 15:16 Neut # (Auto) 11.99 10^3/uL (1.8-7.7) H 09/19/23 15:16 Lymph # (Auto) 0.6 10^3/uL (0.8-4.8) L 09/19/23 15:16 [place] # (Auto) 0.8 10^3/uL (0.2-0.9) 09/19/23 15:16 Eos # (Auto) 0.1 10^3/uL (0.0-0.8) 09/19/23 15:16 Baso # (Auto) 0.0 10^3/uL (0.0-0.1) 09/19/23 15:16 Nucleated RBC % (auto) 0 % 09/19/23 15:16 Nucleated RBCs # 0.0 /100WBC 09/19/23 15:16 Sodium 135 mmol/L (136-145) L 09/19/23 15:16 Potassium 3.9 mmol/L (3.5-5.1) 09/19/23 15:16 Chloride 101 mmol/L (98-107) 09/19/23 15:16 Carbon Dioxide 22 mmol/L (22-29) 09/19/23 15:16 Anion Gap 15.9 (5-19) 09/19/23 15:16 BUN 8 mg/dL (6-20) 09/19/23 15:16 Creatinine 0.5 mg/dL (0.5-0.9) 09/19/23 15:16 GFR Calculation 134.0 mL/min (90-130) H 09/19/23 15:16 Glucose 102 mg/dL (65-115) 09/19/23 15:16 Calculated Osmolality 279 mOsm/kg (285-295) L 09/19/23 15:16 Lactic Acid 1.0 mmol/L (0.5-2.2) 09/19/23 15:16 Calcium 8.8 mg/dL (8.5-10.5) 09/19/23 15:16 Total Bilirubin 0.2 mg/dL (0.15-1.2) 09/19/23 15:16 AST 13 U/L (0-32) 09/19/23 15:16 ALT 25 U/L (0-33) 09/19/23 15:16 Alkaline Phosphatase 64 U/L (35-105) 09/19/23 15:16 Total Protein 7.0 g/dL (6.6-8.7) 09/19/23 15:16 Albumin 3.6 g/dL (3.5-5.2) 09/19/23 15:16 Globulin 3.4 g/dL (1.3-4.6) 09/19/23 15:16 HCG, Qual Negative (Negative) 09/19/23 15:16 Urine Color Yellow (Yellow) 09/19/23 15:00 Urine Appearance Clear (CLEAR) 09/19/23 15:00 Urine pH 7 (5-7) 09/19/23 15:00 Ur Specific [place] 1.010 (1.005-1.030) 09/19/23 15:00 Urine Protein Neg (Negative) 09/19/23 15:00 Urine Glucose (UA) Norm (Normal) 09/19/23 15:00 Urine Ketones Negative (Negative) 09/19/23 15:00 Urine Blood 3+ (Negative) H 09/19/23 15:00 Urine Nitrate Negative (Negative) 09/19/23 15:00 Urine Bilirubin Neg (Negative) 09/19/23 15:00 Urine Urobilinogen Norm mg/dL (Negative) 09/19/23 15:00 Ur Leukocyte Esterase 2+ (Negative) H 09/19/23 15:00 Urine RBC 11-20 /hpf (0-2) 09/19/23 15:00 Urine WBC 55-80 /hpf (0-5) H 09/19/23 15:00 Ur Squamous Epith Cells 0-4 /hpf (0-5) H 09/19/23 15:00 Amorphous Sediment Not Reportable 09/19/23 15:00 Urine Bacteria 2+ /hpf (NONE) H 09/19/23 15:00 All radiology interpretation(s) finalized by discharge Discharge Plan Discharge Patient Disposition: Home Clinical Impression: Acute urinary retention, Cystitis, Constipation Condition: Stable Prescriptions: New Cipro 500 mg tablet 500 mg PO BID Qty: 14 0RF No Action escitalopram oxalate [Lexapro] 10 mg tablet 10 mg PO DAILY hydrocodone-acetaminophen 5-325 mg tablet 1 tab PO Q4H PRN (Reason: pain) 5 Days Qty: 20 0RF omega-3 fatty acids 300 mg Capsule 1,500 mg PO DAILY ibuprofen 800 mg tablet 800 mg PO TID PRN (Reason: pain) Qty: 60 0RF Iron (ferrous sulfate) 325 mg (65 mg iron) tablet 325 mg PO BID Qty: 60 0RF Colace 100 mg capsule 100 mg PO BID Qty: 60 0RF acetaminophen 325 mg capsule 325 mg PO Q4H PRN (Reason: fever or pain) Qty: 60 0RF Discharge Orders: Discharge ED (Routine); Ordered 09/19/23 Ordered By: August Zapata Referrals: Aidan Jack MD [Primary Care Provider] - Discharge Diet: Usual diet Discharge Activity: Increase activity as tolerated Patient Instructions: Opioid Safety, Pain Management Activity Restrictions/Additional Instructions: Thank you for choosing [facility] for your healthcare needs today. It is very important that you follow up as instructed or that you return to the Emergency Department should you have concerns or if your condition changes or worsens in any way. You were seen today with pelvic pain and discomfort. You were noted to have a bladder infection. Along the surgical line there is a small fluid collection these can happen as a take the typical part of recovery but will need to be watched closely by Dr. Jack. I did discuss your case with Dr. Jack he recommends that we place a Logan catheter in your bladder to ensure that your bladder drains completely this will help with healing and with his discomfort. Will put you on oral antibiotics for the bladder infection. If you notice a temp greater than 100.5 you should return to the emergency room. Coding Level of Care Code ED Respiratory Manager for Radha Penn
[2023-09-19 15:51] LABS: Alanine Aminotransferase 25 U/L (0-33); Albumin Level 3.6 g/dL (3.5-5.2); Alkaline Phosphatase 64 U/L (35-105); Anion Gap 15.9 (5-19); Aspartate Amino Transferase 13 U/L (0-32); Blood Urea Nitrogen 8 mg/dL (6-20); Calcium 8.8 mg/dL (8.5-10.5); Carbon Dioxide 22 mmol/L (22-29); Chloride 101 mmol/L (98-107); Globulin 3.4 g/dL (1.3-4.6); Glucose 102 mg/dL (65-115); HCG, Serum Qual Negative (Negative); Osmolality Calculated 279 mOsm/kg (285-295); Potassium 3.9 mmol/L (3.5-5.1); Sodium 135 mmol/L (136-145); Total Bilirubin 0.2 mg/dL (0.15-1.2)
[2023-09-19 16:00] VITALS: PULSE 99; O2SAT 99
[2023-09-19] MEDS: iohexol 350 mg/mL 500 mL Btl (per mL) IV (16:20)
[2023-09-19 16:33] LABS: Add Urine Microscopic? YES; Bilirubin Urine Neg (Negative); Blood Urine 3+ (Negative); Glucose Urine UA Norm (Normal); Ketones Urine Negative (Negative); Leukocyte Esterase Urine 2+ (Negative); Nitrate Urine Negative (Negative); Protein Urine Neg (Negative); Urine Appearance Clear (CLEAR); Urine Color Yellow (Yellow); Urobilinogen Urine Norm (Negative); pH Urine 7 (5-7)
[2023-09-19 16:36] LABS: Add Urine Culture? Yes; Bacteria Urine 2+ /hpf; Squamous Epithelial Cell Urine 0-4 /hpf (0-5); WBC Urine 55-80 /hpf (0-5)
[2023-09-19] MEDS: morphine 4 mg/mL SDV 1 mL IVP ×2 (16:59→18:49)
[2023-09-19] MEDS: cefTRIAXone 1,000 MG in sodium chloride 0.9% (plus) 50 ML 100 MG IV (17:08)
[2023-09-19 17:10] VITALS: BP 97/65; PULSE 97; O2SAT 100
[2023-09-19 18:52] VITALS: BP 122/77; PULSE 103; O2SAT 98
[2023-09-19 19:29] VITALS: BP 122/69; PULSE 99; O2SAT 98
== END 2023-09-19 19:30 | disposition home or self-care (01) ==
PROVIDERS: Physician Assistant; Emergency Provider Family Medicine; PCP Obstetrics & Gynecology
DX: R33.9 Retention of urine, unspecified (principal); N30.90 Cystitis, unspecified without hematuria; K59.00 Constipation, unspecified; Z90.710 Acquired absence of both cervix and uterus
CPT/HCPCS: 36415; 51702; 74177; 80053; 81001; 83605; 84703; 85025; 87040; 87086; 96365; 96375; 96376; 99285; 99291; J0696; J2270; Q9967

== ENCOUNTER 2023-09-26 11:40 | Outpatient (CLI) | payer MEDICAID, SELFPAY ==
--- NOTE | 2023-09-26 12:45 | CT_ITS ---
WS: [id number] CT ABDOMEN AND PELVIS WITH CONTRAST HISTORY: G89.18 - Other acute postprocedural pain TECHNIQUE: Imaging performed of the abdomen and pelvis with IV contrast. Single phase imaging of the abdomen. Coronal and sagittal reformats are submitted. All CT scans at [facility] use at [address] one of these dose optimization techniques: automated exposure control; mA and/or kV adjustment per patient size (includes targeted exams where dose is matched to clinical indication); or iterative re construction. IV CONTRAST: Omnipaque 350; 100 mL IV. Oral contrast: Yes. DLP: 413.63 mGy.cm COMPARISON: 09/19/2023 Lower thorax: Lung bases are clear. Heart is normal size. No hiatal hernia. Liver/biliary system: Normal size with no intrahepatic dilatation. Gallbladder: Normal. No gallstones or wall thickening. No pericholecystic fluid. Pancreas: Normal size pancreas and pancreatic duct. No adjacent inflammation. Spleen: Normal size spleen. No mass or infarct. Adrenal glands: Normal. Right kidney: Mild anterior rotation of the renal pelvis. No obstruction. Left kidney: Normal. Aorta: Normal. Lymphadenopathy: None. Free fluid: None. GI tract: Stomach is distended with oral contrast and food. No outlet obstruction is evident. Normal small bowel. Inspissated fecal material greatest in the ascending and transverse colon suggesting con stipation. No obstructive pattern. Abdominal wall: There is a very small amount of soft tissue stranding in the anterior abdominal and p elvic wall. There is no focal fluid collection. No abscess. Pelvis: No free fluid or adenopathy. Uterus is absent. Both ovaries contain small follicles. The larg est in the LEFT ovary is 2.7 x 1.4 cm. No pelvic abscess. Previously described fluid collection with air in the RIGHT surgical site has decreased in size. There is less air present also. Small collecti on measures 1.1 x 1.1 cm. Bones: Sclerotic foci within the pelvis consistent with bone islands. CT/CT abdomen pelvis w con* [id number] IMPRESSION: 1. Recently described postoperative collection or abscess in the RIGHT pelvis on 09/19/2023 has decreased in size. There is less air and the cavity is collaps ing. Cavity now measures 1.1 x 1.1 cm. 2. No new collection or abscess. No free fluid. No abnormality along the incis ion site. 3. Status post hysterectomy. 4. Marked constipation.
[2023-09-26] MEDS: iohexol 350 mg/mL 500 mL Btl (per mL) IV (13:18)
[2023-09-26] MEDS: iohexol 350 mg/mL 500 mL Btl (per mL) PO (13:18)
== END 2023-09-26 11:41 | disposition home or self-care (01) ==
PROVIDERS: PCP Obstetrics & Gynecology; Visit Provider Nurse Practitioner Women's Health
DX: G89.18 Other acute postprocedural pain (principal); R19.00 Intra-abdominal and pelvic swelling, mass and lump, unspecified site; N83.8 Other noninflammatory disorders of ovary, fallopian tube and broad ligament; K59.00 Constipation, unspecified
CPT/HCPCS: 74177; 80053; 81000; 85025; 87086; Q9967

== ENCOUNTER 2024-03-02 07:31 | Day surgery (SDC) | payer MEDICAID, SELFPAY ==
--- NOTE | 2024-02-23 10:23 | P.ANESASSM_ITS ---
Pre-Anesthetic Assessment Height/Weight: Height 1.7 m Operation Date: 03/02/24 11:15 Proposed Procedures p Sling revision 17529, T82.460Q(Not Applicable) - Aidan Jack MD Familial anesthetic complications: None Was Beta Jazz taken within 24 hours: N/A Was Clonidine taken within 24 hours: N/A Social No alcohol and No tobacco Exam alert, oriented x 3, clear to auscultation bilaterally and regular rate & rhythm Airway Mallampati: Class I Dentition: full Anesthetic Plan ASA status: 1 Anesthesia: General Risk of > 500 ml blood loss (7ml/kg in children): No Medications/Allergies Home Medications Medication Instructions Recorded Confirmed Last Taken Type escitalopram oxalate 10 mg tablet 10 mg PO DAILY 05/21/23 02/23/24 02/23/24 History (Lexapro) omega-3 fatty acids 300 mg capsule 1,500 mg PO DAILY 09/01/23 02/23/24 09/01/23 History acetaminophen 325 mg capsule 325 mg PO Q4H PRN fever or pain 09/10/23 02/23/24 Unknown Rx #60 caps docusate sodium 100 mg capsule 100 mg PO BID #60 caps 09/10/23 02/23/24 02/23/24 Rx (Colace) ibuprofen 800 mg tablet 800 mg PO TID PRN pain #60 tabs 10/09/23 02/23/24 Unknown Rx semaglutide (weight loss) 0.5 0.5 mg SUBCUT Q7D 02/23/24 02/23/24 02/23/24 History mg/0.5 mL subcutaneous pen injector Allergies Allergy/AdvReac Type Severity Reaction Status Date / Time No Known Allergies Allergy Verified 02/23/24 08:19 [facility] Anesthesia Medical History No pertinent past medical history neghx: htn, dm, thyroid, dvt/pe PCP: Surgical History History of hysterectomy (~09/09/23) [facility] with bilateral salpingectomy, anterior colporrhaphy augmented with allograft, mid urethral sling, vaginal wall cyst incision and drainage. Performed by Dr. Jack at [facility] for enlarged uterus, uterine prolapse, cystocele, mixed urinary incontinence and vaginal right wall cyst Family History Denies family history of Colon cancer Ovarian cancer Diabetes Heart disease Breast cancer Hypertension Uterine cancer Thyroid disease Stroke Social History Smoking and tobacco/nicotine status: never used tobacco/nicotine Data Anesthesia 02/23/24 10:05 02/23/24 10:05 Cardiac Studies: 2 No Data to Display
[2024-02-23 10:33] LABS: Basophils % 0.6 %; Eosinophils # 0.1 10^3/uL (0.0-0.8); Eosinophils % 2.3 %; Hematocrit 42.1 % (36-47); Lymphocytes % 18.5 %; Mean Corpuscular HGB Conc 33.7 g/dL (30-55); Mean Corpuscular Hemoglobin 30.1 pg (27-33); Mean Corpuscular Volume 89.4 fl (85-98); Monocytes # 0.5 10^3/uL (0.2-0.9); Monocytes % 10.2 %; Neutrophils % 67.8 %; Nucleated Red Blood Cells % 0 %; Platelet Count 290 10^3/cmm (157-399); Red Blood Count 4.71 10^6/uL (3.85-5.65); Red Cell Distribution Width 12.9 % (12.1-15.1)
[2024-02-23 10:35] LABS: Bilirubin Urine Negative (Negative); Blood Urine Trace (Negative); Glucose Urine UA Negative (Normal); Ketones Urine Negative (Negative); Leukocyte Esterase Urine 2+ (Negative); Nitrate Urine Negative (Negative); Protein Urine Negative (Negative); Specific Gravity, Urine 1.008 (1.005-1.030); Urine Appearance Clear (CLEAR); Urine Color Yellow (Yellow); Urobilinogen Urine 0.2 mg/dL (Negative)
[2024-02-23 10:38] LABS: Add Urine Microscopic? YES; Bacteria Urine 1+ /hpf; Hyaline Casts Urine 1.65 /lpf; Squamous Epithelial Cell Urine 0-5 /hpf (0-5)
[2024-02-23 10:49] LABS: Alanine Aminotransferase 10 U/L (0-33); Albumin Level 4.2 g/dL (3.5-5.2); Alkaline Phosphatase 55 U/L (35-105); Anion Gap 13.8 (5-19); Aspartate Amino Transferase 12 U/L (0-32); Blood Urea Nitrogen 11 mg/dL (6-20); Calcium 8.7 mg/dL (8.5-10.5); Carbon Dioxide 24 mmol/L (22-29); Chloride 103 mmol/L (98-107); Globulin 2.7 g/dL (1.3-4.6); Glomerular Filtration Rate 108.1 mL/min (90-130); Glucose 87 mg/dL (65-115); Osmolality Calculated 283 mOsm/kg (285-295); Potassium 3.8 mmol/L (3.5-5.1); Sodium 137 mmol/L (136-145); Total Bilirubin 0.4 mg/dL (0.15-1.2); Total Protein 6.9 g/dL (6.6-8.7)
[2024-02-23 12:47] LABS: Add Urine Culture? Yes
[2024-03-02] VITALS (9 sets, daily range): BP systolic 102–144; BP diastolic 62–89; PULSE 78–109; RESP 18; TEMP 36.3–36.4; O2SAT 95–100; BMI 28.1
[2024-03-02 08:05] LABS: OR HCG Qualitative Urine Negative (Negative)
[2024-03-02] MEDS: sodium chloride 0.9% 500 ML IV (08:15)
[2024-03-02] MEDS: scopolamine 1.5 Patch 1 PATCH TRANSDERMA (08:16)
--- NOTE | 2024-03-02 08:39 | P.ANESUD_ITS ---
Pre-Anesthetic Update Pre-Anesthetic Assessment: Date of Surgery/Procedure: 03/02/24 Preop Kassandra gnosis: Sling exposure Proposed Procedure: Operation Date: 03/02/24 09:15 Proposed Procedures p Sling revision 86449, T83.712A(Not Applicable) - Aidan Jack MD Changes from Pre-Anesthetic Assessment: No changes from prior preanesthetic performed by Dr. Caicedo last week. Patient is extremely nervous this morning. NPO since yesterday. test negative. Plan for general anesthesia Last Intake: Intake Last Liquid Date 03/01/24 Last Liquid Time 21:00 Last Solid Date 03/01/24 Last Solid Time 21:00 Vitals: Temperature 97.4 F L 03/02/24 07:48 Temperature Source Temporal Artery S can 03/02/24 07:48 Pulse Rate 85 03/02/24 07:48 Respiratory Rate 18 03/02/24 07:48 Blood Pressure 127/86 03/02/24 07:48 Blood Pressure Zhane n 99 03/02/24 07:48 Pulse Oximetry 100 03/02/24 07:48 Oxygen Delivery Me thod Room Air 03/02/24 07:49 Cardiac Studies: No Data to Display
[2024-03-02] MEDS: midazolam 1 mg/mL INJ 2 mL 2 MG IVP (08:54)
--- NOTE | 2024-03-02 08:56 | W.PM.OPSUD ---
Surgery/Procedure H&P Update DATE OF PROCEDURE: March 02, 2024 DATE H&P PERFORMED: 02/23/24 H&P UPDATE INFORMATION: I have reviewed H&P completed within last 30 days, I have examined patient prior to procedure and No changes to prior documentation PREOP DIAGNOSIS: Sling exposure PLANNED PROCEDURE: Operation Date: 03/02/24 09:15 Proposed Procedures p Sling revision [id number], T83.712A(Not Applicable) - Aidan Jack MD
[2024-03-02] MEDS: sodium chloride 0.9% 1,000 ML 30 ML IV (09:03)
[2024-03-02] MEDS: ceFAZolin 2,000 mg SDV 2000 MG IVP (09:17)
[2024-03-02] MEDS: lidocaine-epi 2% PF 1:200,000 20 mL SDV INJECTION (09:48)
--- NOTE | 2024-03-02 11:39 | PM.OP ---
Operative Report Date of procedure: March 02, 2024 Pre-op diagnosis: Mid urethral sling exposure/erosion Post-op diagnosis: same Procedure done: Mid urethral sling incision revision augmented with allograft Implants: Coloplast allograft Specimens removed/disposition: None Surgeon: Aidan Jack MD Estimated blood loss (mL): 50 IV fluids (mL): 500 Urine output (mL): 200 Complications: None Procedure: After obtaining informed consent, the patient was taken to the operating room and placed in the supine position, given general anesthesia, and prepped and draped in sterile fashion. The abdomen, vulva and vagina were prepped and draped in a sterile manner. A time out procedure was performed. The anterior vaginal mucosa beneath the midurethra was infiltrated with [2% lidocaine with epinephrine]. A vertical midline incision was made beneath the midurethra, nearly 1.5 cm length. Careful submucosal dissection was performed bilaterally exposing the mid urethral sling. Using a Coloplast dermis allograft 1 cm x 3 cm was laid over the sling and the vaginal mucosa was close in running locked fashion with 3-0 Vicryl. Then the Logan catheter was removed and cystoscope was inserted. The bladder was filled with sterile water. Complete evaluation of the bladder mucosa was performed noting no lacerations, dimpling, tears, bleeding of the mucosa or muscular layers. Both ureteral orifices were identified. Prompt excretion of urine from both ureteral orifices was noted. Cystoscope was withdrawn. The Logan catheter was replaced. Excellent hemostasis was obtained. A vaginal pack is placed overnight as postoperative support for the vaginal tissues after graft placement and closure of vaginal incisions. Sponge, lap, needle, and instrument counts were correct times three. The patient was taken to the recovery room, awake and in stable condition.
--- NOTE | 2024-03-02 12:06 | ANE.PACU2 ---
Inpatient post-anesthesia follow up: Airway intact: Yes Vital signs: Temperature 97.3 F Pulse Rate 80 Respiratory Rate 18 Blood Pressure 119/79 Pulse Oximetry 98 Oxygen Delivery Me thod Room Air Oxygen Flow Rate 8 Fraction of Inspir ed Oxygen Hydration adequate: Yes Nausea and vomiting: No Pain level: 1 Mental status: Baseline
== END 2024-03-02 12:07 | disposition home or self-care (01) ==
PROVIDERS: Visit Provider Obstetrics & Gynecology
PROC: (CPT 57288; principal; 2024-03-02 09:05)
DX: T83.712A Erosion of implanted urethral mesh to surrounding organ or tissue, initial encounter (principal); Y82.8 Other medical devices associated with adverse incidents
CPT/HCPCS: 57287; 80053; 81001; 81025; 85025; 86850; 86900; 87086; C1762; J0690; J1100; J1885; J2250; J2405; J2704; J3010; J7030; J7040

== ENCOUNTER → 2024-07-08 09:34 | Outpatient (BNVA) | payer MEDICAID, SELFPAY | PROVIDERS: Visit Provider Nurse Practitioner Family | DX: R30.0 Dysuria (principal); N39.0 Urinary tract infection, site not specified | CPT/HCPCS: 81000; 87086 ==

== ENCOUNTER → 2025-02-02 16:04 | Outpatient (BNVA) | payer MEDICAID, SELFPAY | PROVIDERS: PCP Nurse Practitioner Family; Visit Provider Nurse Practitioner Family | DX: N39.0 Urinary tract infection, site not specified (principal) | CPT/HCPCS: 81000; 87086 ==

== ENCOUNTER → 2025-03-29 13:01 | Outpatient (BNVA) | payer MEDICAID, SELFPAY | PROVIDERS: PCP Nurse Practitioner Family; Visit Provider Nurse Practitioner | DX: N39.0 Urinary tract infection, site not specified (principal) | CPT/HCPCS: 81000 ==